=== PATIENT | male | born 1990 | race Two or more races ===

== ENCOUNTER 2018-02-22 11:35 | Emergency (ER) | payer BC ==
[~2018-02-22] VITALS: Ht 185.4 cm; Wt 104.3 kg
[2018-02-22] MEDS ORDERED: IV NORMAL SALINE 1000ML BAG 1,000 ML IV SCH (11:52)
[2018-02-22] MEDS ORDERED: MORPHINE SULFATE 4 MG/ML VIAL. IV/SQ PRN (12:00)
--- NOTE | 2018-02-22 12:05 | PHYS DOC ---
Past Medical History Past Medical History: No Pertinent History Past Surgical History: No Surgical History Smoking: Cigarettes Alcohol Use: Occasionally Drug Use: None Adult General Chief Complaint Chief Complaint: Neck Pain HPI HPI Patient is a 27-year-old male who presents to the emergency department for evaluation. He states that yesterday afternoon he began experiencing some pain in his left lower costal margin and left upper abdomen. The pain seems to be worsened with movement as well as deep breathing. He denies any shortness of breath. The pain radiates towards his left neck area as well as his left posterior scapular area. He has no personal history of coronary disease or family history of premature onset coronary disease. He is otherwise healthy. He went to a clinic at , was given some Toradol, had an EKG which showed left atrial enlargement and was thus sent to the emergency department for an abnormal EKG. The patient denies any exertional chest pain. He has not had any nausea, vomiting, or diarrhea. There are no alleviating or exacerbating factors to his symptoms. 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 Review of Systems Review of Systems Constitutional: Denies fever or chills [] Eyes: Denies change in visual acuity, redness, or eye pain [] HENT: Denies nasal congestion or sore throat [] Respiratory: Denies cough or shortness of breath. Reports pleuritic pain. [] Cardiovascular: No additional information not addressed in HPI [] GI: Denies nausea, vomiting, bloody stools or diarrhea [] : Denies dysuria or hematuria [] Musculoskeletal: Denies back pain or joint pain [] Integument: Denies rash or skin lesions [] Neurologic: Denies headache, focal weakness or sensory changes [] Endocrine: Denies polyuria or polydipsia [] All other systems were reviewed and found to be within normal limits, except as documented in this note. Current Medications Current Medications Current Medications Medications (Trade) Dose Ordered Sig/Aida Start Time Stop Time Status Last Admin Dose Admin Info (CONTRAST GIVEN -- Rx MONITORING) 1 each PRN DAILY PRN 02/22/18 13:15 02/24/18 13:14 Iohexol (Omnipaque 300 Mg/ml) 75 ml 1X ONCE 02/22/18 13:15 02/22/18 13:16 DC Morphine Sulfate (Morphine Sulfate) 4 mg PRN Q15MIN PRN 02/22/18 12:00 02/23/18 11:59 02/22/18 12:24 4 MG Sodium Chloride 1,000 ml @ 100 mls/hr Q10H 02/22/18 11:52 02/22/18 21:51 02/22/18 12:24 100 MLS/HR Allergies Allergies Allergies Coded Allergies Type Severity Reaction Last Updated Verified chocolate flavor Allergy Unknown 02/22/18 Yes Physical Exam Physical Exam PHYSICAL EXAM: CONSTITUTIONAL: Well developed, well nourished HEAD: normocephalic, atraumatic EENT: PERRL, EOMI. Conjunctivae normal color, sclerae non-icteric; moist mucous membranes. NECK: Supple, non-tender; no meningismus. LUNGS: Lungs CTA, breathing even and unlabored. Normal air movement. HEART: Regular rate and rhythm, no murmur CHEST: No deformity; there is mild tenderness to palpation to the anterior/ inferior/lateral costal margin, without any crepitus or wheezing or other abnormality noted. ABDOMEN: The abdomen is soft, there is mild left upper quadrant tenderness to palpation which reproduces the patient's pain. The remainder the abdomen is soft and non-tender, no masses or bruits. EXTREM: Normal ROM; no deformity, no calf tenderness. Normal pulses palpable in all extremities. There is no pedal edema. SKIN: No rash; no diaphoresis NEURO: Alert; normal speech and cognition; CN's grossly intact; strength grossly intact without focal deficit. BACK: No CVA TTP. Current Patient Data Vital Signs Vital Signs Date Time Temp Pulse Resp B/P (MAP) Pulse Ox O2 Delivery O2 Flow Rate FiO2 02/22/18 13:42 68 18 133/80 (97) 99 02/22/18 11:45 98.1 Room Air 98.1 Lab Values Laboratory Tests Test 02/22/18 11:46 02/22/18 13:45 White Blood Count 5.2 x10^3/uL (4.0-11.0) Red Blood Count 5.45 x10^6/uL (4.30-5.70) Hemoglobin 16.7 g/dL (13.0-17.5) Hematocrit 48.5 % (39.0-53.0) Mean Corpuscular Volume 89 fL (79-100) Mean Corpuscular Hemoglobin 31 pg (25-35) Mean Corpuscular Hemoglobin Concent 34 g/dL (31-37) Red Cell Distribution Width 14.0 % (11.5-14.5) Platelet Count 207 x10^3/uL (140-400) Neutrophils (%) (Auto) 48 % (31-73) Lymphocytes (%) (Auto) 38 % (24-48) Monocytes (%) (Auto) 11 % (0-9) H Eosinophils (%) (Auto) 1 % (0-3) Basophils (%) (Auto) 1 % (0-3) Neutrophils # (Auto) 2.5 x10^3uL (1.8-7.7) Lymphocytes # (Auto) 2.0 x10^3/uL (1.0-4.8) Monocytes # (Auto) 0.6 x10^3/uL (0.0-1.1) Eosinophils # (Auto) 0.1 x10^3/uL (0.0-0.7) Basophils # (Auto) 0.0 x10^3/uL (0.0-0.2) D-Dimer (Maria Fernanda) 0.68 ug/mlFEU (0.00-0.50) H Sodium Level 135 mmol/L (136-145) L Potassium Level 3.9 mmol/L (3.5-5.1) Chloride Level 100 mmol/L (98-107) Carbon Dioxide Level 30 mmol/L (21-32) Anion Gap 5 (6-14) L Blood Urea Nitrogen 12 mg/dL (8-26) Creatinine 1.2 mg/dL (0.7-1.3) Estimated GFR (Cockcroft-Gault) 72.1 BUN/Creatinine Ratio 10 (6-20) Glucose Level 100 mg/dL (70-99) H Calcium Level 9.5 mg/dL (8.5-10.1) Total Bilirubin 0.6 mg/dL (0.2-1.0) Aspartate Amino Transferase (AST) 40 U/L (15-37) H Alanine Aminotransferase (ALT) 61 U/L (16-63) Alkaline Phosphatase 68 U/L (46-116) Troponin I Quantitative < 0.017 ng/mL (0.000-0.055) Total Protein 8.6 g/dL (6.4-8.2) H Albumin 4.4 g/dL (3.4-5.0) Albumin/Globulin Ratio 1.0 (1.0-1.7) Lipase 95 U/L (73-393) Urine Collection Type Unknown Urine Color Yellow Urine Clarity Clear Urine pH 5.5 Urine Specific [place] >=1.030 Urine Protein 30 mg/dL (NEG-TRACE) Urine Glucose (UA) Negative mg/dL (NEG) Urine Ketones (Stick) Negative mg/dL (NEG) Urine Blood Trace (NEG) Urine Nitrite Negative (NEG) Urine Bilirubin Negative (NEG) Urine Urobilinogen Dipstick 1.0 mg/dL (0.2 mg/dL) Urine Leukocyte Esterase Negative (NEG) Urine RBC Rare /HPF (0-2) Urine WBC 0 /HPF (0-4) Urine Squamous Epithelial Cells None /LPF Urine Bacteria 0 /HPF (0-FEW) Urine Hyaline Casts Occasional /HPF Urine Mucus Marked /LPF Laboratory Tests 02/22/18 11:46 Laboratory Tests 02/22/18 11:46 EKG EKG [[Normal sinus rhythm at a rate of 60 beats for minute, normal axis, normal intervals. Left facial enlargement. There are no acute ischemic ST/T changes.]] Radiology/Procedures Radiology/Procedures PROCEDURE: CHEST PA & LATERAL AP and Lateral Views of the Chest 02/22/2018 12:08 PM Indication: LEFT SIDED CHEST PAIN X 2 DAYS Comparison: None Findings: There is no focal consolidation or infiltrate identified. The cardiomediastinal silhouette is within normal limits. There is no evidence of pneumothorax or pleural effusion. No acute osseous abnormalities are identified. Impression: No evidence of acute cardiopulmonary process. PROCEDURE: CT ABD PELV W/ IV CONTRST ONLY CT ABD PELV W/ IV CONTRST ONLY dated 02/22/2018 1:29 PM Indication: Pain left upper quadrant painLUQ PAIN SINCE MONDAY, [id number] 75ML, NO PRIORS. Comparison: No comparison is available. Technique: Contiguous axial imaging of the abdomen and pelvis performed after the intravenous administration of 75 cc Omnipaque 300. One or more of the following individualized dose reduction techniques were utilized for this examination: 1. Automated exposure control 2. Adjustment of the mA and/or kV according to patient size 3. Use of iterative reconstruction technique Findings: Limited images of lung bases are clear. Minimal dependent opacity in the lower lobes. Mild low-density of the liver, suggesting fatty infiltration. No focal hepatic mass. Intrahepatic and extra hepatic biliary tree normal in caliber. Gallbladder unremarkable. Spleen, pancreas, adrenal glands and kidneys are unremarkable. No hydronephrosis. Unopacified GI tract normal in caliber and contour. No focal bowel wall thickening. No inflammatory stranding in the mesentery. No ascites. Abdominal aorta normal in caliber. Appendix normal in caliber. There are a few borderline enlarged lymph nodes in the left and right periaortic region. Images of pelvis a nondistended urinary bladder. Prostate gland normal in size. No free fluid or lymphadenopathy. Bone windows show no acute findings. Mild lower lumbar spondylosis with prominent limbus vertebrae at L5. IMPRESSION: 1. No acute abnormality of abdomen or pelvis. Normal appendix. 2. There are a few borderline enlarged retroperitoneal lymph nodes, nonspecific. 3. Mild fatty infiltration of the liver. PROCEDURE: CT ANGIOGRAPHY CHEST Examination: CT angiography chest HISTORY: History of pleuritic left-sided chest pain TECHNIQUE: Axial CT angiography images were performed with IV contrast. Coronal and sagittal 3-D MIP reformats are performed Exposure: One or more of the following individualized dose reduction techniques were utilized for this examination: 1. Automated exposure control 2. Adjustment of the mA and/or kV according to patient size 3. Use of iterative reconstruction technique FINDINGS: The central airways are patent The heart size grossly appears unremarkable. The caliber of the aorta grossly appears unremarkable. There is no evidence of filling defect identified in the main pulmonary arterial trunk and right and left main pulmonary arteries. The evaluation the distal lobar, segmental branches of the pulmonary arteries is somewhat limited on this examination Minimal bibasilar lung atelectasis No evidence of pleural effusion or pneumothorax The visualized liver, spleen, adrenals grossly appears unremarkable No evidence of lytic bony destructive lesion IMPRESSION: 1. No evidence of central pulmonary embolism. 2. Mild right basilar lung atelectasis. Course & Med Decision Making Course & Med Decision Making Pertinent Labs and Imaging studies reviewed. (See chart for details) [2:40 PM:Patient remains stable. I discussed test results, the need for close follow-up, and return precautions. The patient was prescribed Flexeril and naproxen at his urgent care visit today when I encouraged him to take his medications. I did review the patient's CT scans and I do question whether there is a trace pleural effusion on the left side suggesting pleurisy.] [place] Disclaimer Dragon Disclaimer This electronic medical record was generated, in whole or in part, using a voice recognition dictation system. Departure Departure Impression: Primary Impression: Pleurisy Disposition: 01 HOME, SELF-CARE Condition: STABLE Referrals: MARIANA LUNA MD Patient Instructions: Pleurisy Additional Instructions: Use the provided resources to establish care with a primary care provider to arrange follow-up. Applying a heating pad to the affected area on your chest may help improve your symptoms, as well as naproxen previously prescribed. Follow-up with cardiology for subtle abnormalities on your EKGs. BLAYNE GENAO MD Feb 22, 2018 12:05
[2018-02-22 12:14] LABS: BASO % 1 % (0-3); EOS # 0.1 x10^3/uL (0.0-0.7); EOS % 1 % (0-3); HEMATOCRIT 48.5 % (39.0-53.0); HEMOGLOBIN 16.7 g/dL (13.0-17.5); LYMPH % 38 % (24-48); MEAN CORPUSCULAR HEMOGLOBIN 31 pg (25-35); MEAN CORPUSCULAR HGB CONC 34 g/dL (31-37); MEAN CORPUSCULAR VOLUME 89 fL (79-100); MONO # 0.6 x10^3/uL (0.0-1.1); MONO % 11 % (0-9); NEUT # 2.5 x10^3uL (1.8-7.7); NEUT % 48 % (31-73); PLATELET COUNT 207 x10^3/uL (140-400); RED BLOOD COUNT 5.45 x10^6/uL (4.30-5.70); WHITE BLOOD COUNT 5.2 x10^3/uL (4.0-11.0)
--- NOTE | 2018-02-22 12:21 | RAD ---
AP and Lateral Views of the Chest 02/22/2018 12:08 PM Indication: LEFT SIDED CHEST PAIN X 2 DAYS Comparison: None Findings: There is no focal consolidation or infiltrate identified. The cardiomediastinal silhouette is within normal limits. There is no evidence of pneumothorax or pleural effusion. No acute osseous abnormalities are identified. Impression: No evidence of acute cardiopulmonary process. Electronically signed by: Chandana Aguirre MD (02/22/2018 12:18 PM) [id number]
--- NOTE | 2018-02-22 12:40 | EKG ---
[facility] [address] [place] [address] Test Date: 2018-02-22 Test Time: 11:43:20 Pat Name: VÍCTOR WICK Department: Room: Gender: M Seasoner: : 1990 Requested By: BLAYNE GENAO Order Number: [id number] Reading MD: Lake Morel MD Measurements Intervals [place] Rate: 60 P: 47 VT: 142 QRS: 44 QRSD: 90 T: 16 QT: 374 QTc: 374 Interpretive Statements SR Electronically Signed On 02-26-2018 11:12:55 [employer] by Lake Morel MD
[2018-02-22 12:41] LABS: ALBUMIN 4.4 g/dL (3.4-5.0); CALCIUM 9.5 mg/dL (8.5-10.1); CREATININE 1.2 mg/dL (0.7-1.3); GFR 72.1; POTASSIUM 3.9 mmol/L (3.5-5.1); TOTAL BILIRUBIN 0.6 mg/dL (0.2-1.0); TOTAL PROTEIN 8.6 g/dL (6.4-8.2)
[2018-02-22] MEDS ORDERED: CONTRAST GIVEN. MC PRN (13:15)
[2018-02-22] MEDS ORDERED: IOHEXOL 300 MG/ML 100ML VIAL. IV ONE (13:15)
--- NOTE | 2018-02-22 13:47 | RAD ---
CT ABD PELV W/ IV CONTRST ONLY dated 02/22/2018 1:29 PM Indication: Pain left upper quadrant painLUQ PAIN SINCE MONDAY, [id number] 75ML, NO PRIORS. Comparison: No comparison is available. Technique: Contiguous axial imaging of the abdomen and pelvis performed after the intravenous administration of 75 cc Omnipaque 300. One or more of the following individualized dose reduction techniques were utilized for this examination: 1. Automated exposure control 2. Adjustment of the mA and/or kV according to patient size 3. Use of iterative reconstruction technique Findings: Limited images of lung bases are clear. Minimal dependent opacity in the lower lobes. Mild low-density of the liver, suggesting fatty infiltration. No focal hepatic mass. Intrahepatic and extra hepatic biliary tree normal in caliber. Gallbladder unremarkable. Spleen, pancreas, adrenal glands and kidneys are unremarkable. No hydronephrosis. Unopacified GI tract normal in caliber and contour. No focal bowel wall thickening. No inflammatory stranding in the mesentery. No ascites. Abdominal aorta normal in caliber. Appendix normal in caliber. There are a few borderline enlarged lymph nodes in the left and right periaortic region. Images of pelvis a nondistended urinary bladder. Prostate gland normal in size. No free fluid or lymphadenopathy. Bone windows show no acute findings. Mild lower lumbar spondylosis with prominent limbus vertebrae at L5. IMPRESSION: 1. No acute abnormality of abdomen or pelvis. Normal appendix. 2. There are a few borderline enlarged retroperitoneal lymph nodes, nonspecific. 3. Mild fatty infiltration of the liver. Electronically signed by: Dhiraj Coelho MD (02/22/2018 1:44 PM) [id number]
[2018-02-22 13:56] LABS: BILIRUBIN,URINE NEGATIVE (NEG); CLARITY,URINE CLEAR; COLOR,URINE YELLOW; NITRITE,URINE NEGATIVE (NEG); PH,URINE 5.5; PROTEIN,URINE 30 mg/dL (NEG-TRACE)
--- NOTE | 2018-02-22 13:59 | RAD ---
Examination: CT angiography chest HISTORY: History of pleuritic left-sided chest pain TECHNIQUE: Axial CT angiography images were performed with IV contrast. Coronal and sagittal 3-D MIP reformats are performed Exposure: One or more of the following individualized dose reduction techniques were utilized for this examination: 1. Automated exposure control 2. Adjustment of the mA and/or kV according to patient size 3. Use of iterative reconstruction technique FINDINGS: The central airways are patent The heart size grossly appears unremarkable. The caliber of the aorta grossly appears unremarkable. There is no evidence of filling defect identified in the main pulmonary arterial trunk and right and left main pulmonary arteries. The evaluation the distal lobar, segmental branches of the pulmonary arteries is somewhat limited on this examination Minimal bibasilar lung atelectasis No evidence of pleural effusion or pneumothorax The visualized liver, spleen, adrenals grossly appears unremarkable No evidence of lytic bony destructive lesion IMPRESSION: 1. No evidence of central pulmonary embolism. 2. Mild right basilar lung atelectasis. Electronically signed by: Florentino Moe MD (02/22/2018 1:55 PM) [place] [id number]
[2018-02-22 14:13] LABS: BACTERIA,URINE 0 /HPF (0-FEW); RBC,URINE RARE /HPF (0-2); WBC,URINE 0 /HPF (0-4)
[2018-02-22 14:14] LABS: HYALINE CASTS, URINE OCCASIONAL /HPF
[2018-02-22 14:39] VITALS: BP 133/67
== END 2018-02-22 15:00 | disposition home or self-care (01) ==
LOC: ER 11:35
DX: R09.1 Pleurisy (principal); K76.0 Fatty (change of) liver, not elsewhere classified; F17.210 Nicotine dependence, cigarettes, uncomplicated; Z91.02 Food additives allergy status
CPT/HCPCS: 36415; 71046; 71275; 74177; 80053; 81001; 83690; 84484; 85025; 85379; 93005; 96374; 99285; J2270; J7030